=== PATIENT | male | born 1975 | race African-American/Black ===

== ENCOUNTER 2017-08-28 07:09 | Emergency (ER) | payer MEDICAID ==
[~2017-08-28] VITALS: Ht 180.3 cm; Wt 94.0 kg
[2017-08-28] MEDS ORDERED: TRIM100T PO (08:01)
[2017-08-28] MEDS ORDERED: EMTR1TAB13 PO (08:01)
[2017-08-28] MEDS ORDERED: KETOROLAC 30MG/ML VIAL IV STA (10:41)
[2017-08-28 11:06] LABS: BASOPHILS % 0.6 % (0.0-2.0); EOSINOPHILS % 0.8 % (0.0-5.0); HEMATOCRIT. 41.4 % (42.0-52.0); HEMOGLOBIN. 13.6 g/dL (14.0-18.0); LYMPHOCYTES % 35.7 % (20.0-50.0); MEAN CORPUSCULAR HEMOGLOBIN 28.6 pg (28.0-32.0); MEAN CORPUSCULAR VOLUME 86.8 fL (80.0-94.0); MEAN PLATELET VOLUME 7.2 fl (7.4-10.4); MONOCYTES % 12.5 % (2.0-8.0); NEUTROPHILS % 50.4 % (40.0-76.0); PLATELET 378 x1000/uL (130-400); RED BLOOD CELL COUNT 4.77 mill/uL (4.7-6.1); RED CELL DISTRIBUTION WIDTH 12.9 % (11.6-14.6)
[2017-08-28 11:26] LABS: CARBON DIOXIDE 27 mEq/L (21-32); CHLORIDE 107 mEq/L (98-107); TROPONIN I < 0.02 ng/mL (0.00-0.04)
[2017-08-28] MEDS ORDERED: SODIUM CHLORIDE 0.9% 1,000 ML IV ONE (11:30)
[2017-08-28 12:00] VITALS: BP 172/107
[2017-08-28] MEDS ORDERED: SODIUM CHLORIDE 0.9% 1,000 ML IV NR (12:30)
== END 2017-08-28 13:36 | disposition home or self-care (01) ==
LOC: ER 07:48
DX: J06.9 Acute upper respiratory infection, unspecified (principal); I10 Essential (primary) hypertension; F14.10 Cocaine abuse, uncomplicated; Z21 Asymptomatic human immunodeficiency virus [HIV] infection status
CPT/HCPCS: 36415; 71045; 80053; 83605; 83690; 83880; 84484; 85025; 87040; 87804; 93005; 96361; 96374; 99285; J1885; J7030

== ENCOUNTER 2018-02-02 10:29 | Emergency (ER) | payer MEDICAID ==
[~2018-02-02] VITALS: Ht 182.9 cm; Wt 93.0 kg
[~2018-02-02 10:29] MED LIST: EMTR1TAB13 PO; TRIM100T PO
[2018-02-02 10:36] VITALS: BP 141/91
== END 2018-02-02 13:48 | disposition home or self-care (01) ==
LOC: ER 10:29
DX: M25.521 Pain in right elbow (principal); I10 Essential (primary) hypertension; W22.01XA Walked into wall, initial encounter; Y93.89 Activity, other specified; Y92.89 Other specified places as the place of occurrence of the external cause; Y99.8 Other external cause status
CPT/HCPCS: 73080; 99284

== ENCOUNTER 2019-09-13 11:34 | Emergency (ER) | payer MEDICAID ==
[~2019-09-13] VITALS: Ht 175.3 cm; Wt 85.0 kg
[2019-09-13 15:00] VITALS: BP 122/91
== END 2019-09-13 16:56 | disposition left against medical advice (07) ==
LOC: ER 11:34
DX: T51.0X1A Toxic effect of ethanol, accidental (unintentional), initial encounter (principal); R07.89 Other chest pain; Z53.21 Procedure and treatment not carried out due to patient leaving prior to being seen by health care provider; Y92.89 Other specified places as the place of occurrence of the external cause